=== PATIENT | female | born 1970 | race Hispanic/Latino ===

== ENCOUNTER 2022-09-04 09:08 | Emergency (ER) | payer SELFPAY ==
[2022-09-04] MEDS ORDERED: Ketorolac Tromethamine 30 MG/ML VIAL ONE (10:32)
== END 2022-09-04 11:27 | disposition home or self-care (01) ==
LOC: ERS 09:08
DX: L03.115 Cellulitis of right lower limb (principal); Z48.01 Encounter for change or removal of surgical wound dressing; E03.9 Hypothyroidism, unspecified; Z79.899 Other long term (current) drug therapy
CPT/HCPCS: 96372; 99283; J1885